=== PATIENT | male | born 1955 | race Caucasian/White ===

== ENCOUNTER 2018-11-12 05:55 | Day surgery (SDC) | payer MEDICARE ==
[~2018-11-12] VITALS: Ht 167.6 cm; Wt 73.7 kg
--- NOTE | 2018-11-12 06:40 | NUR ---
History, Chart, Medications and Allergies reviewed before start of procedure. Patient confirms NPO status and agrees with scheduled surgery. Lungs clear T/O to Auscultation. Patient States Post-Procedure ride home has been arranged. Pre-Op teaching done. Pt verbalizes understanding. Patient reports completing Chlorhexadine shower X2 prior to admission to hospital.
--- NOTE | 2018-11-12 07:24 | NUR ---
LIBRARY AIDE REPORT COMPLETED AT THE BEDSIDE WITH MAYA DUBON RN.
--- NOTE | 2018-11-12 11:41 | NUR ---
PT STATES PAIN BETTER WHEN MOVING RIGHT ARM UP AND MASSAGING. DR BUSH CAME BY AND IS AWARE OF ARM PAIN. WILL CONT. TO MONITOR AND TREAT.
--- NOTE | 2018-11-12 12:48 | NUR ---
Discharge instructions reviewed with patient. Patient verbalizes understanding. Copy given to patient to take home. PT AMBULATED, UP TO VOID, ABLE TO VOID. RIDE HOME CALLED, VSS. PT STATES RIGHT SHOULDER/ARM PAIN IS BETTER. DRG TO ABD C/D/I.
== END 2018-11-12 12:53 | disposition home or self-care (01) ==
LOC: ORSCMMR 05:55 → ORD 07:30 → ORSCMMR 12:53
PROVIDERS: Surgery
PROC: 8E0W4CZ Robotic Assisted Procedure of Trunk Region, Percutaneous Endoscopic Approach (ICD-10-PCS; principal; 2018-11-12 07:30)
PROC: 0YU54JZ Supplement Right Inguinal Region with Synthetic Substitute, Percutaneous Endoscopic Approach (ICD-10-PCS; principal; 2018-11-12 07:30)
DX: K40.30 Unilateral inguinal hernia, with obstruction, without gangrene, not specified as recurrent (principal)
CPT/HCPCS: 49650; S2900; A9270-GY; C1713; J0360; J0690; J1100; J1885; J2250; J2405; J2704; J2710; J3010; J7120